=== PATIENT | male | born 1955 ===

== ENCOUNTER 2020-04-02 10:46 | Emergency (ER) | payer MEDICARE, OTHER ==
--- NOTE | 2020-04-02 11:00 | EDM.PDOC ---
ED HPI GENERAL MEDICAL PROBLEM - General Stated Complaint: BURN ON BACK Time Seen by Provider: 04/02/20 10:59 Source of Information: Reports: Patient History Limitations: Reports: No Limitations - History of Present Illness INITIAL COMMENTS - FREE TEXT/NARRATIVE: HISTORY AND PHYSICAL: History of present illness: Patient is a 64-year-old male who presents to the emergency room with concerns of a "burn" to his left flank wrapping around to his left abdomen. He states he was using a thermal heat pack on his back on 03/28/2020 and a few days after developed blistering to his back that is now wrapped to his front. He is concerned that the thermal heat pack has caused blistering. Patient denies any fever, chills, headache, change in vision, syncope or near syncope. Denies any chest pain, back pain, shortness of breath or cough. Denies any GI or symptoms. Patient has been eating and drinking appropriately. Review of systems: As per history of present illness and below otherwise all systems reviewed and negative. Past medical history: As per history of present illness and as reviewed below otherwise noncontributory. Surgical history: As per history of present illness and as reviewed below otherwise noncontributory. Social history: See social history for further information Family history: As per history of present illness and as reviewed below otherwise noncontributory. Physical exam: General: Well developed and well nourished. Alert and orientated x 3. Nontoxic in appearance and in no acute distress. Vital signs are stable and have been reviewed by me. Nursing notes were reviewed. HEENT: Atraumatic, normocephalic, pupils equal and reactive bilaterally, negative for conjunctival pallor or scleral icterus, mucous membranes moist, trachea midline. No drooling or trismus noted. No meningeal signs. No hot potato voice noted. Lungs: Clear to auscultation, breath sounds equal bilaterally, chest nontender. Normal work of breathing, no accessory muscles used. Heart: S1S2, regular rate and rhythm without overt murmur Abdomen: Soft, nondistended, nontender. Negative for masses or hepatosplenomegaly. Negative for costovertebral tenderness. Skin: Shingles type rash noted to the left flank and wraps around to the left abdomen. This does not cross the midline. Fluid-filled blisters noted. Otherwise remaining skin is intact, warm, dry. No lesions or rashes noted. Hematologic: No petechiae or purpra. Mucosa appropriate color and normal nail bed color and refill. Extremities: Atraumatic, moves all extremities per self without difficulty or deficits, negative for cords or calf pain. Neurovascular unremarkable. Neuro: Awake, alert, oriented. Cranial nerves II through XII unremarkable. Cerebellum unremarkable. Motor and sensory unremarkable throughout. Exam non focal. Psychiatric: Mood and affect are appropriate. Normal thought process. Answering questions appropriately. Notes: I have spoken with the patient/caregiver and discussed today's findings, in add ition to providing specific details for plan of care. Reassessment at the time of disposition demonstrates that the patient is in no acute distress. The patient has remained stable throughout the entire ED visit and is without objective evidence for acute process requiring urgent intervention or hospitalization. The patient is stable for discharge, counseling was provided and we discussed in great detail signs and symptoms that would prompt them to return to the Emergency Department. Medication, follow up and supportive care measures were reviewed and discussed. Voices understanding and is agreeable to plan of care. Denies any further questions or concerns at this time. Diagnostics: None Therapeutics: Valtrex Prescription: Valtrex, [place] Impression: Shingles Plan: 1. Keep the skin clean and dry, wash gently with mild soap and water 1-2 times daily. Good handwashing to avoid spreading it to others. Antivirals (Valtrex) shorten the duration of viral shedding, stop new formation of lesions and reduce pain severity. Please take this medication over the next 7 days. 2. Tylenol and/or ibuprofen as needed for pain management. If you are having moderate to severe pain you can take the [place]. This medication may cause drowsiness so do not take it while driving or needing to be functioning outside of the house. 3. We encourage you to follow up with your primary care provider and/or recommended specialist in the next few days for re-evaluation and further care/management. If your symptoms should worsen, new symptoms develop or any of the signs and symptoms we discussed should arise please return to the emergency room or call 911 (if needed). Definitive disposition and diagnosis as appropriate pending reevaluation and review of above. Left Middle Back Pain Score (Numeric/FACES): 3 - Related Data Allergies Allergy/AdvReac Type Severity Reaction Status Date / Time No Known Allergies Allergy Verified 04/02/20 10:57 Home Meds: Home Meds Acetaminophen/HYDROcodone [[place] 325-5 MG] 1 dose PO Q4H #20 tablet 04/02/20 [Rx] Metaxalone 800 mg PO ASDIRECTED 04/02/20 [History] valACYclovir [Valtrex] 1,000 mg PO TID 7 Days #21 tablet 04/02/20 [Rx] ED ROS GENERAL - Review of Systems Review Of Systems: Comprehensive ROS is negative, except as noted in HPI. ED EXAM, SKIN/RASH Exam: See Below Course - Vital Signs Last Recorded V/S: Last Vital Signs Temp 96.2 F L 04/02/20 10:58 Pulse 67 04/02/20 10:58 Resp 16 04/02/20 10:58 BP 171/105 H 04/02/20 10:58 Pulse Ox 96 04/02/20 10:58 - Orders/Labs/Meds Meds: Medications Discontinued Medications Generic Name Dose Route Start Last Admin Trade Name Y[place] PRN Reason Stop Dose Admin Valacyclovir HCl 1,000 mg 04/02/20 11:07 Valtrex PO 04/02/20 11:08 ONETIME ONE Departure - Departure Time of Disposition: 11:12 Disposition: Home, Self-Care 01 Clinical Impression: Shingles Qualifiers: Herpes zoster complications: without complications Qualified Code(s): B02.9 - Zoster without complications - Discharge Information Prescriptions: Acetaminophen/HYDROcodone [[place] 325-5 MG] 1 dose PO Q4H #20 tablet valACYclovir [Valtrex] 1,000 mg PO TID 7 Days #21 tablet Instructions: Shingles, [place]-Rwah Referrals: Loi Kenney MD [Primary Care Provider] - Additional Instructions: The following information is given to patients seen in the emergency department who are being discharged to home. This information is to outline your options for follow-up care. We provide all patients seen in our emergency department with a follow-up referral. The need for follow-up, as well as the timing and circumstances, are variable depending upon the specifics of your emergency department visit. If you don't have a primary care physician on staff, we will provide you with a referral. We always advise you to contact your personal physician following an emergency department visit to inform them of the circumstance of the visit and for follow-up with them and/or the need for any referrals to a consulting specialist. The emergency department will also refer you to a specialist when appropriate. This referral assures that you have the opportunity for follow-up care with a specialist. All of these measure are taken in an effort to provide you with optimal care, which includes your follow-up. Under all circumstances we always encourage you to contact your private cyrily sician who remains a resource for coordinating your care. When calling for follow-up care, please make the office aware that this follow-up is from your recent emergency room visit. If for any reason you are refused follow-up, please contact the Emergency Department at and asked to speak to the emergency department charge nurse. Primary Care [address] [place] [id number] [place] [address] Thank you for choosing the [facility] emergency department in [place] for your medical needs today. It was a pleasure caring for you. Today you were seen in the emergency department for shingles. 1. Keep the skin clean and dry, wash gently with mild soap and water 1-2 times daily. Good handwashing to avoid spreading it to others. Antivirals (Valtrex) shorten the duration of viral shedding, stop new formation of lesions and reduce pain severity. Please take this medication over the next 7 days. 2. Tylenol and/or ibuprofen as needed for pain management. If you are having moderate to severe pain you can take the [place]. This medication may cause drowsiness so do not take it while driving or needing to be functioning outside of the house. 3. We encourage you to follow up with your primary care provider and/or recommended specialist in the next few days for re-evaluation and further care/management. If your symptoms should worsen, new symptoms develop or any of the signs and symptoms we discussed should arise please return to the emergency room or call 911 (if needed). Sepsis Event Note (ED) - Focused Exam Vital Signs: Vital Signs Temp Pulse Resp BP Pulse Ox 04/02/20 10:58 96.2 F L 67 16 171/105 H 96
[2020-04-02] MEDS ORDERED: valACYclovir 500 MG Tab PO ONE (11:07)
== END 2020-04-02 11:36 | disposition home or self-care (01) ==
LOC: MW.ED 10:46
DX: B02.9 Zoster without complications (principal)
CPT/HCPCS: 99283; A9270

== ENCOUNTER 2020-04-08 18:40 | Observation (INO) | payer MEDICARE, OTHER ==
[2020-04-08] MEDS ORDERED: Sodium Chloride 0.9% 2.5 ML Syringe FLUSH PRN (19:42)
[2020-04-08] MEDS ORDERED: Sodium Chloride 0.9% 10 ML Syringe FLUSH PRN (19:42)
--- NOTE | 2020-04-08 19:58 | EDM.PDOC ---
ED HPI GENERAL MEDICAL PROBLEM - General Chief Complaint: Chest Pain Stated Complaint: CHEST PAIN Time Seen by Provider: 04/08/20 19:28 Source of Information: Reports: Patient History Limitations: Reports: No Limitations - History of Present Illness INITIAL COMMENTS - FREE TEXT/NARRATIVE: 64-year-old male presents with left-sided chest pain. Symptoms started yesterday at 3 PM after lifting a gazebo. Described as intermittent throbbing sensation localized to the left chest, nonradiating, currently rated 3/10. He has had multiple episodes since onset yesterday. Denies nausea, vomiting, palpitations, sweats, fever, chills, cough. Associated with diffuse myalgia. He was seen here on 04/02 and was diagnosed with shingles and was prescribed Valtrex. ROS: A 10-point review of systems, other than pertinent positives and negatives as stated per HPI, is otherwise negative Past medical history: No additional pertinent history Past Surgical history: No additional pertinent history Social history: No additional pertinent history Family history: No additional pertinent history PHYSICAL EXAM General: AOx4, GCS = 15, No distress HEENT: dry mucous membrane Neck: supple, no meningismus, no Kernig or Brudzinski Cardiac: S1S2 RRR Respiratory: CTAB, no crackles or rales, no wheezing Abdomen: Soft, nontender, no rebound or guarding, nondistended, no pulsatile mass. Back: nontender skin: left abdomin dermatomal shingles rash, crusting, dry Musculoskeletal: NVI distally, no deformity Neuro: No focal deficits, CN 2 - 12 WNL. CHEST Pain Score (Numeric/FACES): 2 - Related Data Allergies Allergy/AdvReac Type Severity Reaction Status Date / Time No Known Allergies Allergy Verified 04/08/20 18:45 Home Meds: Home Meds Acetaminophen/HYDROcodone [[place] 325-5 MG] 1 dose PO Q4H #20 tablet 04/02/20 [Rx] Metaxalone 800 mg PO ASDIRECTED 04/02/20 [History] valACYclovir [Valtrex] 1,000 mg PO TID 7 Days #21 tablet 04/02/20 [Rx] Past Medical History - Past Health History Medical/Surgical History: Denies Medical/Surgical History - Infectious Disease History Infectious Disease History: Reports: Chicken Pox, Measles, Shingles Social & Family History - Family History Family Medical History: Noncontributory - Caffeine Use Caffeine Use: Reports: Coffee ED ROS GENERAL - Review of Systems Review Of Systems: See Below (see dictation) ED EXAM, GENERAL - Physical Exam Exam: See Below (see dictation) #1 Interpretation EKG Interpretation Comments: Heart rate = 71 bpm, normal sinus rhythm, normal QRS interval, no STEMI. EKG and rhythm strip interpreted by me at 1841 Course - Vital Signs Last Recorded V/S: Last Vital Signs Temp 97.7 F 04/08/20 18:42 Pulse 48 L 04/08/20 22:01 Resp 18 04/08/20 22:01 BP 153/93 H 04/08/20 22:01 Pulse Ox 99 04/08/20 22:01 - Orders/Labs/Meds Orders: Active Orders 24 hr Category Date Time Status Patient Status [ADT] Routine ADT 04/08/20 22:38 Active Cardiac Monitoring [RC] . DIRECTED Care 04/08/20 19:42 Active EKG Documentation Completion [RC] STAT Care 04/08/20 19:43 Active Pulse Oximetry [RC] ASDIRECTED Care 04/08/20 19:42 Active Sodium Chloride 0.9% [Saline Flush] Med 04/08/20 19:42 Active 10 ml FLUSH ASDIRECTED PRN Sodium Chloride 0.9% [Saline Flush] Med 04/08/20 19:42 Active 2.5 ml FLUSH ASDIRECTED PRN Saline Lock Insert [OM.PC] Stat Oth 04/08/20 19:42 Ordered Medication Orders Sodium Chloride (Saline Flush) 10 ml FLUSH ASDIRECTED PRN PRN Reason: Keep Vein Open Sodium Chloride (Saline Flush) 2.5 ml FLUSH ASDIRECTED PRN PRN Reason: Keep Vein Open Labs: Laboratory Tests 04/08/20 04/08/20 04/08/20 Range/Units 18:49 18:49 18:49 WBC 7.06 (4.0-11.0) K/uL RBC 5.35 (4.50-5.90) M/uL Hgb 15.8 (13.0-17.0) g/dL Hct 46.3 (38.0-50.0) % MCV 86.5 (80.0-98.0) fL MCH 29.5 (27.0-32.0) pg MCHC 34.1 (31.0-37.0) g/dL RDW Std Deviation 41.8 (28.0-62.0) fl RDW Coeff of Jeffrey 13 (11.0-15.0) % Plt Count 315 (150-400) K/uL MPV 10.60 (7.40-12.00) fL Neut % (Auto) 75.1 (48.0-80.0) % Lymph % (Auto) 21.0 (16.0-40.0) % [place] % (Auto) 3.8 (0.0-15.0) % Eos % (Auto) 0.0 (0.0-7.0) % Baso % (Auto) 0.1 (0.0-1.5) % Neut # (Auto) 5.3 (1.4-5.7) K/uL Lymph # (Auto) 1.5 (0.6-2.4) K/uL [place] # (Auto) 0.3 (0.0-0.8) K/uL Eos # (Auto) 0.0 (0.0-0.7) K/uL Baso # (Auto) 0.0 (0.0-0.1) K/uL Nucleated RBC % 0.0 /100WBC Nucleated RBCs # 0 K/uL INR Sodium 141 (136-148) mmol/L Potassium 4.0 (3.5-5.1) mmol/L Chloride 106 (98-107) mmol/L Carbon Dioxide 23.0 (21.0-32.0) mmol/L BUN 21 H (7.0-18.0) mg/dL Creatinine 1.0 (0.8-1.3) mg/dL Est Cr Clr Drug Dosing 90.42 mL/min Estimated GFR (MDRD) > 60.0 ml/min Glucose 129 H (74-106) mg/dL Calcium 9.1 (8.5-10.1) mg/dL Total Bilirubin 0.6 (0.2-1.0) mg/dL AST 22 (15-37) IU/L ALT 37 (14-63) IU/L Alkaline Phosphatase 69 (46-116) U/L Troponin I < 0.050 (0.000-0.056) ng/mL B-Natriuretic Peptide 74 (<100) PG/ML Total Protein 7.7 (6.4-8.2) g/dL Albumin 4.1 (3.4-5.0) g/dL Globulin 3.6 (2.6-4.0) g/dL Albumin/Globulin Ratio 1.1 (0.9-1.6) SARS-CoV-2 RNA (MARTELL) (NEGATIVE) 04/08/20 04/08/20 Range/Units 18:49 19:50 WBC (4.0-11.0) K/uL RBC (4.50-5.90) M/uL Hgb (13.0-17.0) g/dL Hct (38.0-50.0) % MCV (80.0-98.0) fL MCH (27.0-32.0) pg MCHC (31.0-37.0) g/dL RDW Std Deviation (28.0-62.0) fl RDW Coeff of Jeffrey (11.0-15.0) % Plt Count (150-400) K/uL MPV (7.40-12.00) fL Neut % (Auto) (48.0-80.0) % Lymph % (Auto) (16.0-40.0) % [place] % (Auto) (0.0-15.0) % Eos % (Auto) (0.0-7.0) % Baso % (Auto) (0.0-1.5) % Neut # (Auto) (1.4-5.7) K/uL Lymph # (Auto) (0.6-2.4) K/uL [place] # (Auto) (0.0-0.8) K/uL Eos # (Auto) (0.0-0.7) K/uL Baso # (Auto) (0.0-0.1) K/uL Nucleated RBC % /100WBC Nucleated RBCs # K/uL INR 1.00 Sodium (136-148) mmol/L Potassium (3.5-5.1) mmol/L Chloride (98-107) mmol/L Carbon Dioxide (21.0-32.0) mmol/L BUN (7.0-18.0) mg/dL Creatinine (0.8-1.3) mg/dL Est Cr Clr Drug Dosing mL/min Estimated GFR (MDRD) ml/min Glucose (74-106) mg/dL Calcium (8.5-10.1) mg/dL Total Bilirubin (0.2-1.0) mg/dL AST (15-37) IU/L ALT (14-63) IU/L Alkaline Phosphatase (46-116) U/L Troponin I (0.000-0.056) ng/mL B-Natriuretic Peptide (<100) PG/ML Total Protein (6.4-8.2) g/dL Albumin (3.4-5.0) g/dL Globulin (2.6-4.0) g/dL Albumin/Globulin Ratio (0.9-1.6) SARS-CoV-2 RNA (MARTELL) NEGATIVE (NEGATIVE) Meds: Medications Generic Name Dose Route Start Last Admin Trade Name Freq PRN Reason Stop Dose Admin Sodium Chloride 10 ml 04/08/20 19:42 Saline Flush FLUSH ASDIRECTED PRN Keep Vein Open Sodium Chloride 2.5 ml 04/08/20 19:42 Saline Flush FLUSH ASDIRECTED PRN Keep Vein Open Discontinued Medications Generic Name Dose Route Start Last Admin Trade Name Freq PRN Reason Stop Dose Admin Aspirin 324 mg 04/08/20 19:59 04/08/20 20:11 Aspirin PO 04/08/20 20:00 324 mg ONETIME ONE Administration Nitroglycerin 0.4 mg 04/08/20 19:59 04/08/20 20:26 Nitrostat SL 0.4 mg Q5M PRN Administration Chest Pain - Re-Assessments/Exams Free Text/Narrative Re-Assessment/Exam: 04/08/20 22:[address] Sandoval, who agrees to admit patient. The hospitalist's documentation supersedes all other documentation on this patient with regard to any conflicts or discrepancies from this point forward. Any emergency conditions have been treated to the ability of the ED prior to admission. Departure - Departure Time of Disposition: 22:47 Disposition: Refer to Observation Condition: Good Clinical Impression: Chest pain Shingles Qualifiers: Herpes zoster complications: without complications Qualified Code(s): B02.9 - Zoster without complications - Discharge Information *PRESCRIPTION DRUG MONITORING PROGRAM REVIEWED*: Not Applicable *COPY OF PRESCRIPTION DRUG MONITORING REPORT IN PATIENT SIMEON: Not Applicable Referrals: PCP,None [Primary Care Provider] - Forms: ED Department Discharge Sepsis Event Note (ED) - Evaluation Sepsis Screening Result: No Definite Risk - Focused Exam Vital Signs: Vital Signs Temp Pulse Resp BP BP Pulse Ox 04/08/20 22:01 48 L 18 153/93 H 99 04/08/20 21:31 52 L 18 157/88 H 98 04/08/20 21:01 55 L 18 154/93 H 97 04/08/20 20:30 67 18 148/86 H 97 04/08/20 20:26 149/93 H 04/08/20 20:25 62 18 149/93 H 98 04/08/20 20:19 76 20 184/116 H 184/116 H 96 04/08/20 20:13 60 18 197/106 H 98 04/08/20 20:12 197/106 H 04/08/20 19:14 63 18 177/99 H 97 04/08/20 18:42 97.7 F 76 16 217/104 H 95 - My Orders Last 24 Hours: My Active Orders 04/08/20 19:42 Cardiac Monitoring [RC] . DIRECTED Pulse Oximetry [RC] ASDIRECTED Sodium Chloride 0.9% [Saline Flush] 10 ml FLUSH ASDIRECTED PRN Sodium Chloride 0.9% [Saline Flush] 2.5 ml FLUSH ASDIRECTED PRN Saline Lock Insert [OM.PC] Stat 04/08/20 19:43 EKG Documentation Completion [RC] STAT 04/08/20 22:38 Patient Status [ADT] Routine - Assessment/Plan Last 24 Hours: My Active Orders 04/08/20 19:42 Cardiac Monitoring [RC] . DIRECTED Pulse Oximetry [RC] ASDIRECTED Sodium Chloride 0.9% [Saline Flush] 10 ml FLUSH ASDIRECTED PRN Sodium Chloride 0.9% [Saline Flush] 2.5 ml FLUSH ASDIRECTED PRN Saline Lock Insert [OM.PC] Stat 04/08/20 19:43 EKG Documentation Completion [RC] STAT 04/08/20 22:38 Patient Status [ADT] Routine
[2020-04-08] MEDS ORDERED: Aspirin 81 MG Tab.Chew PO ONE (19:59)
[2020-04-08 20:05] LABS: BLOOD UREA NITROGEN,BUN 21 mg/dL (7.0-18.0); CHLORIDE,CL 106 mmol/L (98-107); GLUCOSE RANDOM 129 mg/dL (74-106); SODIUM,NA 141 mmol/L (136-148)
[2020-04-08] MEDS: Nitroglycerin 0.4 MG Tab.SL SL PRN ×3 (20:12→20:26)
--- NOTE | 2020-04-08 20:22 | CR ---
INDICATION: Chest pain TECHNIQUE: Chest radiograph 1 view COMPARISON: None FINDINGS: Mediastinum: The mediastinum is normal in appearance. The heart silhouette is normal in size and morphology. Lung: Both lungs are unremarkable in appearance with small lung volumes. No sign of pleural effusion seen. No pneumothorax is identified. Bone and Soft tissue: Unremarkable for age. Remote healed right clavicular fracture deformity noted. IMPRESSION: 1. No acute cardiopulmonary disease is seen. Dictated by: Naresh Turner MD @ 04/08/2020 20:20:17 (Electronically Signed)
[2020-04-08] MEDS ORDERED: Morphine 4 MG/ML Syringe IVPUSH ONE (22:45)
[2020-04-08] MEDS ORDERED: Nitroglycerin 0.2 MG/HR Transdermal Patch TRDERM ONE (22:46)
--- NOTE | 2020-04-09 02:12 | PCM.HP.2 ---
H&P History of Present Illness - General Date of Service: 04/09/20 Admit Problem/Dx: Admission Diagnosis/Problem Admission Diagnosis/Problem Chest pain - History of Present Illness Initial Comments - Free Text/Narative: 64 yo male who presents to the ED with chest pain. Patient reports throbbing substernal chest pain that is intermittent in nature that started yesterday. Yesterday the pain was a 2/10 and tonight it is a 3/10. In the ED initial EKG and troponin were negative for signs of ischemia. CHEST Pain Score (Numeric/FACES): 2 - Related Data Allergies/Adverse Reactions: Allergies Allergy/AdvReac Type Severity Reaction Status Date / Time No Known Allergies Allergy Verified 04/08/20 18:45 Home Medications: Home Meds Acetaminophen/HYDROcodone [Gypsy 325-5 MG] 1 dose PO Q4H #20 tablet 04/02/20 [Rx] valACYclovir [Valtrex] 1,000 mg PO TID 7 Days #21 tablet 04/02/20 [Rx] predniSONE [Prednisone] 20 mg PO BID 04/08/20 [History] Pantoprazole Sodium [Protonix] 40 mg PO DAILY #14 tablet. 04/09/20 [Rx] Past Medical History - Past Health History Medical/Surgical History: Denies Medical/Surgical History - Infectious Disease History Infectious Disease History: Reports: Chicken Pox, Measles, Shingles Social & Family History - Family History Family Medical History: Noncontributory - Tobacco Use Tobacco Use Status *Q: Never Tobacco User Second Hand Smoke Exposure: No - Caffeine Use Caffeine Use: Reports: Soda - Recreational Drug Use Recreational Drug Use: No H&P Review of Systems - Review of Systems: Review Of Systems: Comprehensive ROS is negative, except as noted in HPI. Exam - Exam Exam: See Below - Vital Signs Vital Signs: Last Vital Signs Temp 36.1 C 04/08/20 23:11 Pulse 56 L 04/08/20 23:11 Resp 17 04/08/20 23:11 BP 139/82 04/08/20 23:11 Pulse Ox 97 04/08/20 23:11 Weight: 119.748 kg - Exam General: Alert, Oriented HEENT: Mucosa Moist & [place] Neck: Supple Lungs: Clear to Auscultation, Normal Respiratory Effort Cardiovascular: Regular Rate, Regular Rhythm GI/Abdominal Exam: Normal Bowel Sounds, Soft, Non-Tender, Other (healing zoster rash on lower right abdomen) Extremities: Non-Tender, No Pedal Edema Skin: Warm, Dry, Intact - Patient Data Lab Results Last 24 hrs: Laboratory Results - last 24 hr 04/08/20 04/08/20 04/08/20 Range/Units 18:49 18:49 18:49 WBC 7.06 (4.0-11.0) K/uL RBC 5.35 (4.50-5.90) M/uL Hgb 15.8 (13.0-17.0) g/dL Hct 46.3 (38.0-50.0) % MCV 86.5 (80.0-98.0) fL MCH 29.5 (27.0-32.0) pg MCHC 34.1 (31.0-37.0) g/dL RDW Std Deviation 41.8 (28.0-62.0) fl RDW Coeff of Jeffrey 13 (11.0-15.0) % Plt Count 315 (150-400) K/uL MPV 10.60 (7.40-12.00) fL Neut % (Auto) 75.1 (48.0-80.0) % Lymph % (Auto) 21.0 (16.0-40.0) % [place] % (Auto) 3.8 (0.0-15.0) % Eos % (Auto) 0.0 (0.0-7.0) % Baso % (Auto) 0.1 (0.0-1.5) % Neut # (Auto) 5.3 (1.4-5.7) K/uL Lymph # (Auto) 1.5 (0.6-2.4) K/uL [place] # (Auto) 0.3 (0.0-0.8) K/uL Eos # (Auto) 0.0 (0.0-0.7) K/uL Baso # (Auto) 0.0 (0.0-0.1) K/uL Nucleated RBC % 0.0 /100WBC Nucleated RBCs # 0 K/uL INR Sodium 141 (136-148) mmol/L Potassium 4.0 (3.5-5.1) mmol/L Chloride 106 (98-107) mmol/L Carbon Dioxide 23.0 (21.0-32.0) mmol/L BUN 21 H (7.0-18.0) mg/dL Creatinine 1.0 (0.8-1.3) mg/dL Est Cr Clr Drug Dosing 90.42 mL/min Estimated GFR (MDRD) > 60.0 ml/min Glucose 129 H (74-106) mg/dL Calcium 9.1 (8.5-10.1) mg/dL Total Bilirubin 0.6 (0.2-1.0) mg/dL AST 22 (15-37) IU/L ALT 37 (14-63) IU/L Alkaline Phosphatase 69 (46-116) U/L Troponin I < 0.050 (0.000-0.056) ng/mL B-Natriuretic Peptide 74 (<100) PG/ML Total Protein 7.7 (6.4-8.2) g/dL Albumin 4.1 (3.4-5.0) g/dL Globulin 3.6 (2.6-4.0) g/dL Albumin/Globulin Ratio 1.1 (0.9-1.6) SARS-CoV-2 RNA (MARTELL) (NEGATIVE) 04/08/20 04/08/20 Range/Units 18:49 19:50 WBC (4.0-11.0) K/uL RBC (4.50-5.90) M/uL Hgb (13.0-17.0) g/dL Hct (38.0-50.0) % MCV (80.0-98.0) fL MCH (27.0-32.0) pg MCHC (31.0-37.0) g/dL RDW Std Deviation (28.0-62.0) fl RDW Coeff of Jeffrey (11.0-15.0) % Plt Count (150-400) K/uL MPV (7.40-12.00) fL Neut % (Auto) (48.0-80.0) % Lymph % (Auto) (16.0-40.0) % [place] % (Auto) (0.0-15.0) % Eos % (Auto) (0.0-7.0) % Baso % (Auto) (0.0-1.5) % Neut # (Auto) (1.4-5.7) K/uL Lymph # (Auto) (0.6-2.4) K/uL [place] # (Auto) (0.0-0.8) K/uL Eos # (Auto) (0.0-0.7) K/uL Baso # (Auto) (0.0-0.1) K/uL Nucleated RBC % /100WBC Nucleated RBCs # K/uL INR 1.00 Sodium (136-148) mmol/L Potassium (3.5-5.1) mmol/L Chloride (98-107) mmol/L Carbon Dioxide (21.0-32.0) mmol/L BUN (7.0-18.0) mg/dL Creatinine (0.8-1.3) mg/dL Est Cr Clr Drug Dosing mL/min Estimated GFR (MDRD) ml/min Glucose (74-106) mg/dL Calcium (8.5-10.1) mg/dL Total Bilirubin (0.2-1.0) mg/dL AST (15-37) IU/L ALT (14-63) IU/L Alkaline Phosphatase (46-116) U/L Troponin I (0.000-0.056) ng/mL B-Natriuretic Peptide (<100) PG/ML Total Protein (6.4-8.2) g/dL Albumin (3.4-5.0) g/dL Globulin (2.6-4.0) g/dL Albumin/Globulin Ratio (0.9-1.6) SARS-CoV-2 RNA (MARTELL) NEGATIVE (NEGATIVE) Result Diagrams: 04/08/20 18:49 04/08/20 18:49 Sepsis Event Note - Evaluation Sepsis Screening Result: No Definite Risk - Focused Exam Vital Signs: Vital Signs Temp Pulse Resp BP BP Pulse Ox 04/08/20 23:11 36.1 C 56 L 17 139/82 97 04/08/20 22:01 48 L 18 153/93 H 99 04/08/20 21:31 52 L 18 157/88 H 98 04/08/20 21:01 55 L 18 154/93 H 97 04/08/20 20:30 67 18 148/86 H 97 04/08/20 20:26 149/93 H 04/08/20 20:25 62 18 149/93 H 98 04/08/20 20:19 76 20 184/116 H 184/116 H 96 04/08/20 20:13 60 18 197/106 H 98 04/08/20 20:12 197/106 H 04/08/20 19:14 63 18 177/99 H 97 04/08/20 18:42 36.5 C 76 16 217/104 H 95 Problem List Initiated/Reviewed/Updated: Yes Orders Last 24hrs: Active Orders 24 hr Category Date Time Status Patient Status [ADT] Routine ADT 04/08/20 22:38 Active Cardiac Monitoring [RC] Q8H Care 04/08/20 19:42 Active EKG Documentation Completion [RC] STAT Care 04/08/20 19:43 Active Pulse Oximetry [RC] ASDIRECTED Care 04/08/20 19:42 Active TROPONIN I [CHEM] Q6H Lab 04/09/20 01:43 Ordered TROPONIN I [CHEM] Q6H Lab 04/09/20 07:43 Ordered Acetaminophen/HYDROcodone [Gypsy 325-5 MG] Med 04/09/20 02:15 Ordered 1 dose PO Q4H Sodium Chloride 0.9% [Saline Flush] Med 04/08/20 19:42 Active 10 ml FLUSH ASDIRECTED PRN Sodium Chloride 0.9% [Saline Flush] Med 04/08/20 19:42 Active 2.5 ml FLUSH ASDIRECTED PRN predniSONE Med 04/09/20 09:00 Ordered 20 mg PO BID valACYclovir Med 04/09/20 06:00 Ordered 1,000 mg PO TID Saline Lock Insert [OM.PC] Stat Oth 04/08/20 19:42 Ordered Medication Orders Sodium Chloride (Saline Flush) 10 ml FLUSH ASDIRECTED PRN PRN Reason: Keep Vein Open Sodium Chloride (Saline Flush) 2.5 ml FLUSH ASDIRECTED PRN PRN Reason: Keep Vein Open Assessment/Plan Comment:: 64 yo male admitted for chest pain. He ruled out for acute coronary syndrome with serial negative cardiac enzymes. He had no events on telemetry overnight. Patient was discharged home to have follow up with Dr. Bell. He was recommended to have an exercise stress test which he wants to talk to Dr. Bell first. He was given a trial of Protonix a s he pain may be due to GERD.
[2020-04-09] MEDS: Acetaminophen/HYDROcodone 325-5 MG Tab PO SCH ×3 (03:28→09:52)
[2020-04-09] MEDS ORDERED: valACYclovir 500 MG Tab PO SCH (06:00)
[2020-04-09] MEDS ORDERED: predniSONE 20 MG Tab PO SCH (09:00)
== END 2020-04-09 13:28 | disposition home or self-care (01) ==
LOC: MW.ED 18:40 → MW.MS 22:38
PROVIDERS: ADMIT Internal Medicine; ATTEND Internal Medicine
DX: R07.2 Precordial pain (principal); Z79.899 Other long term (current) drug therapy; Z20.828 Contact with and (suspected) exposure to other viral communicable diseases
CPT/HCPCS: 36415; 71045; 80053; 83880; 84484; 85025; 85610; 93005; 96374; 99285; A9270; G0378; J2270; U0002; 93010; 99218; 99284